=== PATIENT | male | born 2000 ===

== ENCOUNTER 2024-05-23 00:23 | Emergency (ER) | payer OTHER ==
[~2024-05-23] VITALS: Ht 170.2 cm; Wt 77.1 kg
[~2024-05-23 00:23] MED LIST: Crutch1 EACH MISC; IBUP600 PO; Motrin100 MG/5 M PO; Norco 5-325 Ta1 EACH PO
[2024-05-23 01:01] LABS: BASOPHILS ABSOLUTE AUTO 0.04 K/mm3 (0.00-0.23); BASOPHILS PERCENT AUTO 0 % (0-2); EOSINOPHILS ABSOLUTE AUTO 0.15 K/mm3 (0.00-0.68); EOSINOPHILS PERCENT AUTO 1 % (0-6); Hematocrit 46.3 % (37.0-53.0); Hemoglobin 16.5 g/dL (13.5-17.5); IMMATURE GRAN ABSOLUTE AUTO 0.07 K/mm3 (0.00-0.10); IMMATURE GRAN PERCENT AUTO 1 % (0-1); LYMPHOCYTES ABSOLUTE AUTO 3.33 K/mm3 (0.84-5.20); LYMPHOCYTES PERCENT AUTO 28 % (21-46); MONOCYTES ABSOLUTE AUTO 0.93 K/mm3 (0.16-1.47); MONOCYTES PERCENT AUTO 8 % (4-13); Mean Corpuscular HGB 30.5 pg (26.0-34.0); Mean Corpuscular HGB Conc 35.6 g/dL (31.5-36.5); Mean Corpuscular Volume 86 fL (80-100); Mean Platelet Volume 9.4 fL (9.1-12.4); NEUTROPHILS ABSOLUTE AUTO 7.25 K/mm3 (1.96-9.15); NEUTROPHILS PERCENT AUTO 62 % (41-73); Platelet Count 283 K/mm3 (150-400); RDW Coefficient Variation 12.2 % (11.7-14.2); RDW Standard Deviation 38.2 fL (35.1-46.3); Red Blood Cell Count 5.41 M/mm3 (4.30-5.90); White Blood Cell Count 11.77 K/mm3 (4.00-11.30)
[2024-05-23] MEDS ORDERED: Ondansetron HCl 2 MG / ML 2ML Vial IV ONE (01:05)
[2024-05-23 01:13] LABS: Alanine Aminotransfer (ALT/SGP 46 U/L (12-78); Albumin, Blood 4.1 g/dL (3.4-5.0); Albumin/Globulin Ratio 1.2 (0.8-1.8); Alk Phos 139 U/L (50-136); Anion Gap 13 mmol/L (3-11); Aspartate Aminotrans (AST/SGOT 19 U/L (12-37); Bilirubin, Total 0.5 mg/dL (0.1-1.0); Blood Urea Nitrogen 12 mg/dL (8-24); Bun/Creatinine Ratio 12.1 (12.0-20.0); CO2, Blood 25 mmol/L (21-32); Calcium, Blood 9.9 mg/dL (8.5-10.1); Chloride, Blood 106 mmol/L (98-108); Creatinine, Blood 0.99 mg/dL (0.60-1.20); Globulin, Blood 3.4 g/dL (2.2-4.0); Glomerular Filtration Rate 108 (60-); Glucose, Blood 128 mg/dL (70-99); Potassium, Blood 3.4 mmol/L (3.5-5.5); Sodium, Blood 141 mmol/L (136-145); Total Protein, Blood 7.5 g/dL (6.4-8.2)
[2024-05-23 01:54] LABS: Base Excess Venous 4.6 mmol/L; Bicarbonate Venous 27.6 mmol/L (24.0-30.0); PCO2 Venous 47.6 mmHg (38-42)
[2024-05-23 02:07] LABS: Ethanol (Alcohol), Blood, Med <3 mg/dL
[2024-05-23 04:10] VITALS: BP 126/76
== END 2024-05-23 04:13 | disposition left against medical advice (07) ==
LOC: ER 00:23
PROVIDERS: Emergency Medicine
DX: Z77.128 Contact with and (suspected) exposure to other hazards in the physical environment (principal); F12.90 Cannabis use, unspecified, uncomplicated; F17.200 Nicotine dependence, unspecified, uncomplicated; Z88.0 Allergy status to penicillin
CPT/HCPCS: 71045; 80053; 80320; 82375; 82550; 82803; 83605; 84484; 85025; 93005; 93010; 96374; 99284-25; J2405

== ENCOUNTER 2024-08-06 12:20 | Emergency (ER) | payer OTHER ==
[~2024-08-06] VITALS: Ht 172.7 cm; Wt 77.1 kg
[2024-08-06] MEDS ORDERED: NS 1,000 ML IV ONE (12:23)
[2024-08-06] MEDS ORDERED: Morphine Sulfate 4 MG/1 ML Injection ONE (12:28)
[2024-08-06] MEDS ORDERED: propofoL 20 ML IV ONE (12:31)
[2024-08-06] MEDS ORDERED: Rocuronium Bromide 10 MG/ML 5ML Injection IV ONE (12:31)
[2024-08-06] MEDS ORDERED: Dexamethasone Sod Phos 10 MG/ML 1ML VIAL ONE ×2 (12:31→12:42)
[2024-08-06] MEDS ORDERED: SuccINYLCHOLINE Chloride 100 MG/5 ML 5MLSYR ONE ×2 (12:31)
[2024-08-06] MEDS ORDERED: Ondansetron HCl 2 MG / ML 2ML Vial ONE ×2 (12:31→12:42)
[2024-08-06] MEDS ORDERED: FentaNYL Citrate 50 MCG/ML 5 ML Injection ONE (12:32)
[2024-08-06] MEDS ORDERED: Tetanus,Diphtheria Toxd Ped/Pf 0.5 ML VIAL IM ONE (12:35)
[2024-08-06] MEDS ORDERED: Diphth,Pertuss(Acell),Tet Vac 0.5 ML VIAL IM ONE (12:40)
[2024-08-06] MEDS ORDERED: FentaNYL Citrate 50 MCG/ML 2 ML Injection ONE (12:42)
[2024-08-06] MEDS ORDERED: Midazolam HCl 1MG / ML 2ML Vial ONE ×2 (12:42→13:47)
[2024-08-06 12:51] LABS: BASOPHILS ABSOLUTE AUTO 0.09 K/mm3 (0.00-0.23); BASOPHILS PERCENT AUTO 1 % (0-2); EOSINOPHILS ABSOLUTE AUTO 0.26 K/mm3 (0.00-0.68); EOSINOPHILS PERCENT AUTO 2 % (0-6); Hematocrit 45.5 % (37.0-53.0); Hemoglobin 16.3 g/dL (13.5-17.5); IMMATURE GRAN ABSOLUTE AUTO 0.18 K/mm3 (0.00-0.10); IMMATURE GRAN PERCENT AUTO 1 % (0-1); LYMPHOCYTES ABSOLUTE AUTO 3.91 K/mm3 (0.84-5.20); LYMPHOCYTES PERCENT AUTO 27 % (21-46); MONOCYTES ABSOLUTE AUTO 1.15 K/mm3 (0.16-1.47); MONOCYTES PERCENT AUTO 8 % (4-13); Mean Corpuscular HGB Conc 35.8 g/dL (31.5-36.5); Mean Corpuscular Volume 84 fL (80-100); Mean Platelet Volume 9.1 fL (9.1-12.4); NEUTROPHILS ABSOLUTE AUTO 9.12 K/mm3 (1.96-9.15); NEUTROPHILS PERCENT AUTO 62 % (41-73); Platelet Count 346 K/mm3 (150-400); RDW Coefficient Variation 12.3 % (11.7-14.2); RDW Standard Deviation 36.9 fL (35.1-46.3); Red Blood Cell Count 5.44 M/mm3 (4.30-5.90); White Blood Cell Count 14.71 K/mm3 (4.00-11.30)
[2024-08-06 12:55] LABS: International Normalized Ratio 1.06; Prothrombin Time Results 11.3 Sec (9.7-11.5)
[2024-08-06] MEDS ORDERED: Vancomycin HCl 1000 MG ADDvantage ONE (12:56)
[2024-08-06] MEDS ORDERED: CeFAZolin Sodium 1000 mg Vial ONE (12:58)
[2024-08-06] MEDS ORDERED: MetroNIDAZOLE 500MG/NS 100 ml 100 ML IV ONE (13:00)
--- NOTE | 2024-08-06 13:02 | NUR ---
The patient is in imaging and his mother, Amanda arrivesto the ED. I walk into the consult room and provide some anxiety containment. I then go out to determine nexts steps with the patient. I am told that the patient went to surgery and that I could bring Amanda back to the surgery consult room which I did. I conducted a life review of the patient and provided therapeutic liatening and a calming presence. She tells me that while he is in surgery she would drive home to [place] and retreive her phone. I walk her to the parking [facility] as she assures me several times that she ok to drive. While she is gone RN Sheet Folder Gentry informs me that they are going to send the patient with [facility] to [place] in [place] and that the transport team is already on campus. I called Amanda who has uptained her phone and tell her that [place]. She is grateful to know this before she drove back to the hospital. She voices appreciation for the support and care given. I continue to remain available to the patient and family.
[2024-08-06 13:11] VITALS: BP 142/122
[2024-08-06 13:25] LABS: Alanine Aminotransfer (ALT/SGP 28 U/L (12-78); Albumin/Globulin Ratio 1.4 (0.8-1.8); Alk Phos 113 U/L (50-136); Anion Gap 13 mmol/L (3-11); Aspartate Aminotrans (AST/SGOT 23 U/L (12-37); Blood Urea Nitrogen 12 mg/dL (8-24); Bun/Creatinine Ratio 11.2 (12.0-20.0); CO2, Blood 23 mmol/L (21-32); Chloride, Blood 103 mmol/L (98-108); Creatinine, Blood 1.07 mg/dL (0.60-1.20); Ethanol (Alcohol), Blood, Med <3 mg/dL; Globulin, Blood 2.9 g/dL (2.2-4.0); Glomerular Filtration Rate 98 (60-); Glucose, Blood 178 mg/dL (70-99); Potassium, Blood 3.2 mmol/L (3.5-5.5); Sodium, Blood 136 mmol/L (136-145); Total Protein, Blood 6.9 g/dL (6.4-8.2)
[2024-08-06] MEDS ORDERED: fentaNYL citrate 1,000 MCG in NS 80 ML IV SCH (13:35)
[2024-08-06] MEDS ORDERED: propofoL 100 ML IV SCH (13:35)
--- NOTE | 2024-08-06 14:01 | NUR ---
08/06/24 1401 Mona Marin GIVEN BY ANESTHESIA: 1 G ANCEF @ 1246 1 G ANCEF @ 1252 500 FLAGYL @ 1259 FIELD TOURNIQUET LET DOWN FOR 3 MIN TO LEFT UE, WOUND DRESSED WITH 4X4 AND TEGADERM, TOURNIQUET REPLACED BY SURGEON
== END 2024-08-06 12:37 | disposition short-term general hospital (02) ==
LOC: ER 12:20
PROVIDERS: Student in an Organized Health Care Education/Training Program
DX: M79.602 Pain in left arm (principal); S31.139S Puncture wound of abdominal wall without foreign body, unspecified quadrant without penetration into peritoneal cavity, sequela; S71.032 Puncture wound without foreign body, left hip; S31.03 Puncture wound without foreign body of lower back and pelvis; S51.832S Puncture wound without foreign body of left forearm, sequela; F17.210 Nicotine dependence, cigarettes, uncomplicated; W34.00XA Accidental discharge from unspecified firearms or gun, initial encounter
CPT/HCPCS: 70450; 71045; 71260; 72125; 74177; 80053; 80320; 83690; 85025; 85610; 86850; 86900; 86901; 86923; 88300; 90702; 96374-59; 99285-25; J0330; J0690; J1100; J2250; J2270; J2405; J2704; J3010; J3370; J7030; Q9967

== ENCOUNTER 2024-08-15 22:09 | Emergency (ER) | payer OTHER ==
[~2024-08-15] VITALS: Ht 170.2 cm; Wt 79.4 kg
[2024-08-15 22:21] VITALS: BP 151/90
== END 2024-08-16 00:41 | disposition left against medical advice (07) ==
LOC: ER 22:09
DX: Z53.21 Procedure and treatment not carried out due to patient leaving prior to being seen by health care provider (principal)
CPT/HCPCS: 93005; 93010

== ENCOUNTER 2024-08-20 23:40 | Observation (INO) | payer OTHER ==
[~2024-08-20] VITALS: Ht 172.7 cm; Wt 70.5 kg
[2024-08-21] MEDS ORDERED: Acetaminophen 500 MG Tab PO ONE (00:05)
[2024-08-21] MEDS ORDERED: NS 1,000 ML IV SCH ×2 (00:05→03:20)
[2024-08-21] MEDS ORDERED: FentaNYL Citrate 50 MCG/ML 2 ML Injection IV PRN ×2 (00:05→03:15)
[2024-08-21 00:19] LABS: BASOPHILS ABSOLUTE AUTO 0.08 K/mm3 (0.00-0.23); BASOPHILS PERCENT AUTO 0 % (0-2); EOSINOPHILS ABSOLUTE AUTO 0.16 K/mm3 (0.00-0.68); EOSINOPHILS PERCENT AUTO 1 % (0-6); Hemoglobin 9.5 g/dL (13.5-17.5); IMMATURE GRAN ABSOLUTE AUTO 0.21 K/mm3 (0.00-0.10); IMMATURE GRAN PERCENT AUTO 1 % (0-1); LYMPHOCYTES ABSOLUTE AUTO 2.81 K/mm3 (0.84-5.20); LYMPHOCYTES PERCENT AUTO 15 % (21-46); MONOCYTES ABSOLUTE AUTO 1.34 K/mm3 (0.16-1.47); MONOCYTES PERCENT AUTO 7 % (4-13); Mean Corpuscular HGB 31.5 pg (26.0-34.0); Mean Corpuscular HGB Conc 33.9 g/dL (31.5-36.5); Mean Corpuscular Volume 93 fL (80-100); Mean Platelet Volume 8.6 fL (9.1-12.4); NEUTROPHILS ABSOLUTE AUTO 14.76 K/mm3 (1.96-9.15); NEUTROPHILS PERCENT AUTO 76 % (41-73); Platelet Count 822 K/mm3 (150-400); RDW Coefficient Variation 15.5 % (11.7-14.2); Red Blood Cell Count 3.02 M/mm3 (4.30-5.90); White Blood Cell Count 19.36 K/mm3 (4.00-11.30)
[2024-08-21] MEDS ORDERED: CeFAZolin Sodium 2,000 MG in NS 100 ML IV ONE (00:25)
[2024-08-21 00:39] LABS: Albumin, Blood 3.1 g/dL (3.4-5.0); Albumin/Globulin Ratio 0.8 (0.8-1.8); Bilirubin, Total 0.7 mg/dL (0.1-1.0); Bun/Creatinine Ratio 12.8 (12.0-20.0); Calcium, Blood 8.6 mg/dL (8.5-10.1); Creatinine, Blood 0.86 mg/dL (0.60-1.20); Globulin, Blood 3.7 g/dL (2.2-4.0); Potassium, Blood 3.5 mmol/L (3.5-5.5); Total Protein, Blood 6.8 g/dL (6.4-8.2)
[2024-08-21] MEDS ORDERED: LORazepam 2 MG/ML 1ML Injection IV ONE ×2 (01:55→09:00)
[2024-08-21] MEDS ORDERED: MetroNIDAZOLE 500MG/NS 100 ml 100 ML IV ONE (02:50)
[2024-08-21] MEDS ORDERED: Acetaminophen 325 MG TABLET PO PRN (03:15)
[2024-08-21] MEDS ORDERED: Ondansetron HCl 2 MG / ML 2ML Vial IV PRN (03:15)
[2024-08-21] MEDS ORDERED: Cefepime HCl 1,000 MG in NS 100 ML IV SCH (03:24)
[2024-08-21] MEDS ORDERED: Vancomycin HCL 1,750 MG in NS 500 ML IV ONE (03:40)
--- NOTE | 2024-08-21 04:01 | NUR ---
REVIEWED FOR CURRENT ADMISSION
[2024-08-21 05:25] VITALS: BP 123/80
[2024-08-21] MEDS ORDERED: NS 250 ML IV PRN (05:45)
[2024-08-21 08:51] LABS: BASOPHILS ABSOLUTE AUTO 0.06 K/mm3 (0.00-0.23); BASOPHILS PERCENT AUTO 1 % (0-2); EOSINOPHILS ABSOLUTE AUTO 0.18 K/mm3 (0.00-0.68); EOSINOPHILS PERCENT AUTO 1 % (0-6); Hematocrit 25.2 % (37.0-53.0); Hematocrit 25.9 % (37.0-53.0); Hemoglobin 8.3 g/dL (13.5-17.5); Hemoglobin 8.4 g/dL (13.5-17.5); IMMATURE GRAN ABSOLUTE AUTO 0.14 K/mm3 (0.00-0.10); IMMATURE GRAN PERCENT AUTO 1 % (0-1); LYMPHOCYTES ABSOLUTE AUTO 1.76 K/mm3 (0.84-5.20); LYMPHOCYTES PERCENT AUTO 14 % (21-46); MONOCYTES ABSOLUTE AUTO 0.93 K/mm3 (0.16-1.47); MONOCYTES PERCENT AUTO 7 % (4-13); Mean Corpuscular HGB 30.7 pg (26.0-34.0); Mean Corpuscular HGB Conc 32.9 g/dL (31.5-36.5); Mean Corpuscular Volume 93 fL (80-100); Mean Platelet Volume 8.6 fL (9.1-12.4); NEUTROPHILS ABSOLUTE AUTO 9.65 K/mm3 (1.96-9.15); NEUTROPHILS PERCENT AUTO 76 % (41-73); Platelet Count 636 K/mm3 (150-400); RDW Coefficient Variation 15.7 % (11.7-14.2); RDW Standard Deviation 51.9 fL (35.1-46.3); White Blood Cell Count 12.72 K/mm3 (4.00-11.30)
[2024-08-21] MEDS ORDERED: ClonazePAM 0.5 MG Tab PO PRN (08:55)
[2024-08-21 09:09] LABS: Albumin, Blood 2.5 g/dL (3.4-5.0); Albumin/Globulin Ratio 0.8 (0.8-1.8); Bilirubin, Total 0.5 mg/dL (0.1-1.0); Bun/Creatinine Ratio 10.5 (12.0-20.0); Calcium, Blood 8.2 mg/dL (8.5-10.1); Creatinine, Blood 0.67 mg/dL (0.60-1.20); Globulin, Blood 3.1 g/dL (2.2-4.0); Potassium, Blood 3.9 mmol/L (3.5-5.5); Total Protein, Blood 5.6 g/dL (6.4-8.2)
--- NOTE | 2024-08-21 10:38 | NUR ---
AM NOTE: PATIENT A/OX4, ANXIOUS AND LABILE MOOD. AT AROUND 0840 VEGETABLE TIER CAME IN AND DRAW AM SCHEDULED LAB. PATIENT MOM AND GIRLFRIEND AT BEDSIDE. PER VEGETABLE TIER PATIENT EXPRESSESS TO MOM STATED, "I WANNA ." PATIENT MOM LEFT THE ROOM. AT AROUND 0850 DR. WALTERS ROUND ON PATIENT. AT AROUND 0900 PATIENT HAD OUTBURST, ARGUING c HIS GIRLFRIEND, YELLING OUT AND REQUESTING TO LEAVE THE ROOM. COLT CHEN WAS CALLED; A COUPLE OF SECURITY RESPONDED TO ROOM, DR. WALTERS, DR. REDMAN AND THIS RN IN ROOM. PATIENT ANXIOUS, AGITATED STATED "DON'T LET HER TAKE THE BAGBACK THAT'S MINE." PATIENT GIRLFRIEND LEFT THE ROOM. PATIENT MEDICATED FOR ANXIETY. PATIENT ASSISTED UP TO RECLINER CHAIR. AT AROUND 0940'S DR. DARBY, DR. WALTERS AND DR. REDMAN ROUND ON PATIENT. PATIENT REQUESTING TO GO OUT TO SMOKE CIGARETTE. DR. WALTERS SPOKE TO PATIENT c SMOKING POLICY AND OFFERED NICOTINE PATCH. PATIENT DECLINED AND WANTING TO LEAVE AMA. PATIENT EDUCATED c RISK AND BENIFITS LEAVING AMA c HIS CURRENT CONDITION. PATIENT ALSO INFORMED HE GOT ACCEPTED BY DR. CHEN ( AT [facility]) WERE WAITING FOR BED AVAILABILITY FOR TRANSFER. PATIENT STATED "I CANNOT WAIT HERE ANYMORE,I DON'T WANNA RIDE IN AMBULANCE BUT I'M WILLING TO GO TO [facility] ER AND ADMITTED MYSELF. I NEED TO CALL SOMEONE TO TRANSPORT ME TO [facility]. PATIENT MOM CALLED, THIS RN ANSWER THE TELEPHONE IN PATIENT ROOM. PATIENT MOM SPOKE TO DR. WALTERS. PATIENT MOM VEBALIZED UNDERSTANDING, AGREED FOR PATIENT TO LEAVE AMA AND TAKE DIRECTLY TO -[facility]. PATIENT MOM ARRIVED AT 1118 IN ROOM. PIV DC'D. ALL PERSONAL BELONGINGS WERE SENT c THE PATIENT. PATIENT LEFT AMA AT 1120 TRANSPORTED VIA WHEELCHAIR BY MOM (LE[facility]). DR. WALTERS NOTIFIED AT 1122.
== END 2024-08-21 11:22 | disposition left against medical advice (07) ==
LOC: ER 23:40 → MEDS 23:41 → ERHOLD 23:41 → MEDS 08-21 05:11
PROVIDERS: Emergency Medicine; Internal Medicine; ADMIT Internal Medicine
DX: A41.9 Sepsis, unspecified organism (principal); K65.1 Peritoneal abscess; L02.211 Cutaneous abscess of abdominal wall; F17.210 Nicotine dependence, cigarettes, uncomplicated; Z88.0 Allergy status to penicillin
CPT/HCPCS: 36415; 70450; 71260; 74177; 80053; 83605; 83690; 85014; 85018; 85025; 87040; 93005; 93010; 96361; 96365-59; 96366; 96375; 96376; 99284-25; G0378; J0690; J0692; J2060; J3010; J3370; J7030; J7040; Q9967

== ENCOUNTER 2024-09-05 11:22 | Day surgery (SDC) | payer OTHER ==
[~2024-09-05 11:22] MED LIST changes: +Ertapenem Sodium 1,000 MG in NS 50 ML IV SCH
[2024-09-05 11:30] VITALS: BP 139/74
[2024-09-05] MEDS ORDERED: ERTAPENEM1 G6 IV (12:56)
[2024-09-05 13:34] LABS: BASOPHILS ABSOLUTE AUTO 0.07 K/mm3 (0.00-0.23); BASOPHILS PERCENT AUTO 1 % (0-2); EOSINOPHILS ABSOLUTE AUTO 0.22 K/mm3 (0.00-0.68); EOSINOPHILS PERCENT AUTO 2 % (0-6); Hematocrit 30.9 % (37.0-53.0); Hemoglobin 10.2 g/dL (13.5-17.5); IMMATURE GRAN ABSOLUTE AUTO 0.09 K/mm3 (0.00-0.10); IMMATURE GRAN PERCENT AUTO 1 % (0-1); LYMPHOCYTES ABSOLUTE AUTO 2.79 K/mm3 (0.84-5.20); LYMPHOCYTES PERCENT AUTO 26 % (21-46); MONOCYTES ABSOLUTE AUTO 0.72 K/mm3 (0.16-1.47); MONOCYTES PERCENT AUTO 7 % (4-13); Mean Corpuscular HGB 29.7 pg (26.0-34.0); Mean Corpuscular Volume 90 fL (80-100); NEUTROPHILS ABSOLUTE AUTO 6.66 K/mm3 (1.96-9.15); NEUTROPHILS PERCENT AUTO 63 % (41-73); Platelet Count 528 K/mm3 (150-400); RDW Coefficient Variation 14.4 % (11.7-14.2); RDW Standard Deviation 47.1 fL (35.1-46.3); Red Blood Cell Count 3.43 M/mm3 (4.30-5.90); White Blood Cell Count 10.55 K/mm3 (4.00-11.30)
[2024-09-05 13:47] LABS: C-REACTIVE PROTEIN, EXT RANGE 0.524 mg/dL (0.000-0.300)
[2024-09-05 13:50] LABS: Albumin, Blood 3.2 g/dL (3.4-5.0); Albumin/Globulin Ratio 0.8 (0.8-1.8); Bilirubin, Total 0.2 mg/dL (0.1-1.0); Bun/Creatinine Ratio 9.7 (12.0-20.0); Calcium, Blood 9.4 mg/dL (8.5-10.1); Creatinine, Blood 0.82 mg/dL (0.60-1.20); Globulin, Blood 3.9 g/dL (2.2-4.0); Potassium, Blood 3.4 mmol/L (3.5-5.5); Total Protein, Blood 7.1 g/dL (6.4-8.2)
--- NOTE | 2024-09-05 15:46 | NUR ---
Lab results from today's draw faxed to Dr. Falcon's office at [phone].
== END 2024-09-05 12:05 | disposition home or self-care (01) ==
LOC: ATC 11:22
PROVIDERS: Internal Medicine Infectious Disease
DX: T81.43XA Infection following a procedure, organ and space surgical site, initial encounter (principal); K65.1 Peritoneal abscess; Z88.0 Allergy status to penicillin
CPT/HCPCS: 80053; 85025; 86140; J1335

== ENCOUNTER 2024-09-06 03:48 | Day surgery (SDC) | payer OTHER ==
[2024-09-06 14:48] VITALS: BP 136/89
== END 2024-09-06 15:15 | disposition home or self-care (01) ==
LOC: ATC 03:48
DX: T81.43XA Infection following a procedure, organ and space surgical site, initial encounter (principal); K65.1 Peritoneal abscess; Z88.0 Allergy status to penicillin

== ENCOUNTER 2024-09-07 00:30 | Day surgery (SDC) | payer OTHER ==
[2024-09-07 14:52] VITALS: BP 133/87
== END 2024-09-07 15:18 | disposition home or self-care (01) ==
LOC: ATC 00:30
DX: T81.43XA Infection following a procedure, organ and space surgical site, initial encounter (principal); K65.1 Peritoneal abscess; F17.210 Nicotine dependence, cigarettes, uncomplicated; Z79.2 Long term (current) use of antibiotics; Z88.0 Allergy status to penicillin

== ENCOUNTER 2024-09-08 01:19 | Day surgery (SDC) | payer OTHER ==
[~2024-09-08 01:19] MED LIST changes: +ERTAPENEM1 G6 IV
[2024-09-08 14:55] VITALS: BP 134/79
[2024-09-08 16:09] LABS: Bun/Creatinine Ratio 12.5 (12.0-20.0); Calcium, Blood 9.1 mg/dL (8.5-10.1); Creatinine, Blood 0.8 mg/dL (0.60-1.20); Potassium, Blood 3.5 mmol/L (3.5-5.5)
== END 2024-09-08 15:10 | disposition home or self-care (01) ==
LOC: ATC 01:19
PROVIDERS: Internal Medicine Infectious Disease
DX: T81.43XA Infection following a procedure, organ and space surgical site, initial encounter (principal); K65.1 Peritoneal abscess; F17.210 Nicotine dependence, cigarettes, uncomplicated; Z88.0 Allergy status to penicillin; Z79.899 Other long term (current) drug therapy
CPT/HCPCS: 80048; 96365; J1335

== ENCOUNTER 2024-09-10 01:54 | Day surgery (SDC) | payer OTHER ==
[2024-09-10 14:45] VITALS: BP 123/74
== END 2024-09-10 15:10 | disposition home or self-care (01) ==
LOC: ATC 01:54
DX: T81.43XA Infection following a procedure, organ and space surgical site, initial encounter (principal); K65.1 Peritoneal abscess; B96.20 Unspecified Escherichia coli [E. coli] as the cause of diseases classified elsewhere; R00.0 Tachycardia, unspecified; G89.11 Acute pain due to trauma; F17.210 Nicotine dependence, cigarettes, uncomplicated; Z16.11 Resistance to penicillins; Z16.19 Resistance to other specified beta lactam antibiotics; Z16.29 Resistance to other single specified antibiotic; Z91.51 Personal history of suicidal behavior; Z79.2 Long term (current) use of antibiotics; Z90.49 Acquired absence of other specified parts of digestive tract
CPT/HCPCS: 96365; J1335

== ENCOUNTER 2024-09-20 04:29 | Day surgery (SDC) | payer OTHER ==
[2024-09-20 14:20] VITALS: BP 146/76
== END 2024-09-20 14:58 | disposition home or self-care (01) ==
LOC: ATC 04:29
DX: T81.43XA Infection following a procedure, organ and space surgical site, initial encounter (principal); K65.1 Peritoneal abscess; F43.10 Post-traumatic stress disorder, unspecified; G47.00 Insomnia, unspecified; F17.210 Nicotine dependence, cigarettes, uncomplicated; Z79.899 Other long term (current) drug therapy; Z88.0 Allergy status to penicillin
CPT/HCPCS: 96365; J1335

== ENCOUNTER 2024-10-20 23:41 | Emergency (ER) | payer OTHER ==
[~2024-10-20] VITALS: Ht 172.7 cm; Wt 72.6 kg
[~2024-10-20 23:41] MED LIST changes: -Ertapenem Sodium 1,000 MG in NS 50 ML IV SCH
[2024-10-21 00:12] LABS: BASOPHILS ABSOLUTE AUTO 0.04 K/mm3 (0.00-0.23); BASOPHILS PERCENT AUTO 1 % (0-2); EOSINOPHILS ABSOLUTE AUTO 0.15 K/mm3 (0.00-0.68); EOSINOPHILS PERCENT AUTO 2 % (0-6); Hematocrit 35.2 % (37.0-53.0); Hemoglobin 11.5 g/dL (13.5-17.5); IMMATURE GRAN ABSOLUTE AUTO 0.02 K/mm3 (0.00-0.10); IMMATURE GRAN PERCENT AUTO 0 % (0-1); LYMPHOCYTES ABSOLUTE AUTO 1.48 K/mm3 (0.84-5.20); LYMPHOCYTES PERCENT AUTO 18 % (21-46); MONOCYTES ABSOLUTE AUTO 0.61 K/mm3 (0.16-1.47); MONOCYTES PERCENT AUTO 7 % (4-13); Mean Corpuscular HGB Conc 32.7 g/dL (31.5-36.5); Mean Corpuscular Volume 84 fL (80-100); NEUTROPHILS ABSOLUTE AUTO 5.89 K/mm3 (1.96-9.15); NEUTROPHILS PERCENT AUTO 72 % (41-73); NRBC ABSOLUTE 0.00 K/mm3 (0.00-0.02); NRBC Auto 0.0 /100 WBC (0.0-0.2); Platelet Count 246 K/mm3 (150-400); RDW Coefficient Variation 13.3 % (11.7-14.2); RDW Standard Deviation 40.8 fL (35.1-46.3)
[2024-10-21 00:31] LABS: Alanine Aminotransfer (ALT/SGP 22.0 U/L (12-78); Albumin, Blood 3.3 g/dL (3.4-5.0); Albumin/Globulin Ratio 1.1 (0.8-1.8); Anion Gap 8.0 mmol/L (3-11); Aspartate Aminotrans (AST/SGOT 18.0 U/L (12-37); Bilirubin, Total 0.3 mg/dL (0.1-1.0); Blood Urea Nitrogen 9.0 mg/dL (8-24); CO2, Blood 24.0 mmol/L (21-32); Calcium, Blood 8.0 mg/dL (8.5-10.1); Chloride, Blood 110.0 mmol/L (98-108); Creatinine, Blood 0.91 mg/dL (0.60-1.20); Globulin, Blood 3.1 g/dL (2.2-4.0); Glucose, Blood 89.0 mg/dL (70-99); Potassium, Blood 3.1 mmol/L (3.5-5.5); Sodium, Blood 139.0 mmol/L (136-145); Total Protein, Blood 6.4 g/dL (6.4-8.2)
[2024-10-21] MEDS ORDERED: NS 1,000 ML IV SCH (00:35)
[2024-10-21] MEDS ORDERED: ONDA4ODT MM (02:37)
[2024-10-21 03:07] VITALS: BP 132/87
== END 2024-10-21 03:09 | disposition home or self-care (01) ==
LOC: ER 23:41
PROVIDERS: Emergency Medicine
DX: K68.11 Postprocedural retroperitoneal abscess (principal); R11.2 Nausea with vomiting, unspecified; Z88.0 Allergy status to penicillin; F17.210 Nicotine dependence, cigarettes, uncomplicated
CPT/HCPCS: 74177; 80053; 85025; 96360-59; 99284-25; J7030; Q9967

== ENCOUNTER 2024-10-21 03:56 | Emergency (ER) | payer OTHER ==
[~2024-10-21] VITALS: Ht 167.6 cm; Wt 68.0 kg
[~2024-10-21 03:56] MED LIST changes: +ONDA4ODT MM
== END 2024-10-21 04:13 | disposition home or self-care (01) ==
LOC: ER 03:56
DX: Z76.89 Persons encountering health services in other specified circumstances (principal); Z59.00 Homelessness unspecified; F17.210 Nicotine dependence, cigarettes, uncomplicated; Z88.0 Allergy status to penicillin
CPT/HCPCS: 99281

== ENCOUNTER 2024-10-30 22:59 | Observation (INO) | payer OTHER ==
[~2024-10-30] VITALS: Ht 172.7 cm; Wt 65.4 kg
[2024-10-30 23:45] LABS: BASOPHILS ABSOLUTE AUTO 0.05 K/mm3 (0.00-0.23); BASOPHILS PERCENT AUTO 1 % (0-2); EOSINOPHILS ABSOLUTE AUTO 0.28 K/mm3 (0.00-0.68); EOSINOPHILS PERCENT AUTO 3 % (0-6); Hematocrit 41.4 % (37.0-53.0); Hemoglobin 14.1 g/dL (13.5-17.5); IMMATURE GRAN ABSOLUTE AUTO 0.02 K/mm3 (0.00-0.10); IMMATURE GRAN PERCENT AUTO 0 % (0-1); LYMPHOCYTES ABSOLUTE AUTO 2.43 K/mm3 (0.84-5.20); LYMPHOCYTES PERCENT AUTO 23 % (21-46); MONOCYTES ABSOLUTE AUTO 0.66 K/mm3 (0.16-1.47); MONOCYTES PERCENT AUTO 6 % (4-13); Mean Corpuscular HGB Conc 34.1 g/dL (31.5-36.5); Mean Corpuscular Volume 82 fL (80-100); NEUTROPHILS ABSOLUTE AUTO 7.27 K/mm3 (1.96-9.15); NEUTROPHILS PERCENT AUTO 68 % (41-73); NRBC ABSOLUTE 0.00 K/mm3 (0.00-0.02); NRBC Auto 0.0 /100 WBC (0.0-0.2); Platelet Count 372 K/mm3 (150-400); RDW Coefficient Variation 13.4 % (11.7-14.2); RDW Standard Deviation 40.2 fL (35.1-46.3)
[2024-10-31 00:05] LABS: Ethanol (Alcohol), Blood, Med <3 mg/dL; Salicylate 5.0 mg/dL (2.8-20.0)
[2024-10-31 00:08] LABS: Acetaminophen, Random <2.0 ug/mL (10.0-30.0); Alanine Aminotransfer (ALT/SGP 29 U/L (12-78); Albumin, Blood 4.0 g/dL (3.4-5.0); Albumin/Globulin Ratio 1.0 (0.8-1.8); Anion Gap 8 mmol/L (3-11); Aspartate Aminotrans (AST/SGOT 30 U/L (12-37); Bilirubin, Total 0.5 mg/dL (0.1-1.0); Blood Urea Nitrogen 12 mg/dL (8-24); CO2, Blood 24 mmol/L (21-32); Calcium, Blood 9.6 mg/dL (8.5-10.1); Chloride, Blood 109 mmol/L (98-108); Creatinine, Blood 0.93 mg/dL (0.60-1.20); Globulin, Blood 4.0 g/dL (2.2-4.0); Glucose, Blood 86 mg/dL (70-99); Potassium, Blood 3.7 mmol/L (3.5-5.5); Sodium, Blood 137 mmol/L (136-145); Total Protein, Blood 8.0 g/dL (6.4-8.2)
[2024-10-31] MEDS ORDERED: Ondansetron HCl 2 MG / ML 2ML Vial IV PRN (04:20)
[2024-10-31 05:04] VITALS: BP 115/71
[2024-10-31 05:50] LABS: BASOPHILS ABSOLUTE AUTO 0.06 K/mm3 (0.00-0.23); BASOPHILS PERCENT AUTO 1 % (0-2); EOSINOPHILS ABSOLUTE AUTO 0.28 K/mm3 (0.00-0.68); EOSINOPHILS PERCENT AUTO 4 % (0-6); Hematocrit 37.6 % (37.0-53.0); Hemoglobin 12.6 g/dL (13.5-17.5); IMMATURE GRAN ABSOLUTE AUTO 0.02 K/mm3 (0.00-0.10); IMMATURE GRAN PERCENT AUTO 0 % (0-1); LYMPHOCYTES ABSOLUTE AUTO 2.14 K/mm3 (0.84-5.20); LYMPHOCYTES PERCENT AUTO 28 % (21-46); MONOCYTES ABSOLUTE AUTO 0.55 K/mm3 (0.16-1.47); MONOCYTES PERCENT AUTO 7 % (4-13); Mean Corpuscular HGB Conc 33.5 g/dL (31.5-36.5); Mean Corpuscular Volume 82 fL (80-100); NEUTROPHILS ABSOLUTE AUTO 4.63 K/mm3 (1.96-9.15); NEUTROPHILS PERCENT AUTO 60 % (41-73); NRBC ABSOLUTE 0.00 K/mm3 (0.00-0.02); NRBC Auto 0.0 /100 WBC (0.0-0.2); Platelet Count 325 K/mm3 (150-400); RDW Coefficient Variation 13.6 % (11.7-14.2); RDW Standard Deviation 40.6 fL (35.1-46.3)
--- NOTE | 2024-10-31 05:59 | NUR ---
ADMIT NOTE REPORT RECEIVED BY THIS RN FROM INTERVENTIONAL RADIOLOGY TECH, LAURIE WARD, @ APPROX 0356 PT ARRIVED TO PCU 08 @ APPROX 0430 PT SELF TRANSFERRED TO PCU BED, PT MUMBLING NOT ANSWERING QUESTIONS/ BECOMING AGGITATED DURING THIS RN S ASSESSMENT, PT STATED JUST LEAVE ME ALONE . VSS, LUNGS SOUND CLEAR T/O, NO SIGNS OF DISTRESS AT THIS TIME. BOWEL TONES PRESENT IN ALL 4Q. PT IN PAPER CLOTHES WITH 1:1 SITTER AT BEDSIDE OLD DRAIN FROM SURGERY IN JULY OF THIS YEAR HAS SLIGHT REDNESS TO SITE/ OLD DRESSING REMOVED WITH SMALL AMOUNT OF GREEN DISCHARGE, BLISTERS TO BILATERAL HEELS ARE INTACT, SCAB TO LEFT FOOT, SEE PHOTOS IN CHART, MD TO BEDSIDE @ APPROX 0510, PT BECAME AGITATED WITH DOCTORS ASSESSMENT/ NOT ANSWERING QUESTIONS.
[2024-10-31 06:26] LABS: Alanine Aminotransfer (ALT/SGP 24.0 U/L (12-78); Albumin, Blood 3.7 g/dL (3.4-5.0); Albumin/Globulin Ratio 1.2 (0.8-1.8); Anion Gap 8.0 mmol/L (3-11); Aspartate Aminotrans (AST/SGOT 22.0 U/L (12-37); Bilirubin, Total 0.5 mg/dL (0.1-1.0); Blood Urea Nitrogen 10.0 mg/dL (8-24); CO2, Blood 25.0 mmol/L (21-32); Calcium, Blood 8.9 mg/dL (8.5-10.1); Chloride, Blood 108.0 mmol/L (98-108); Creatinine, Blood 0.87 mg/dL (0.60-1.20); Globulin, Blood 3.2 g/dL (2.2-4.0); Glucose, Blood 87.0 mg/dL (70-99); Potassium, Blood 3.5 mmol/L (3.5-5.5); Sodium, Blood 137.0 mmol/L (136-145); Total Protein, Blood 6.9 g/dL (6.4-8.2)
[2024-10-31] MEDS ORDERED: Enoxaparin 40 MG/0.4 ML SYR SC SCH (09:00)
--- NOTE | 2024-10-31 09:12 | NUR ---
ASSUMPTION OF CARE NOTE. PT VERY SOMNOLENT. VERY EMOTIONAL, SOMEWHAT ERRATIC BEHAVIOR CRAIG. ACCOMPANIED DR. WALKER INTO ROOM FOR ROUNDS, PT ABLE TO BE WOKEN AND WAS VERY EMOTIONAL/UPSET/IRRITATED REQUESTING TO EAT, CALL HIS MOM, ASKING IF/WHY HE IS ON A HOLD, ETC. PER DR. WALKER, PT ALLOWED TO HAVE ICE CHIPS BUT IS OTHERWISE TO REMAIN NPO UNTIL SURGICAL CONSULT HAS BEEN COMPLETED. PT UPSET ABOUT THIS. COMPLAINS OF HIP PAIN. DR. WALKER REPORTS HE WILL LOOK THROUGH CHART AND INPUT ORDERS APPROPRIATE FOR PAIN MANAGEMENT. WHEN COMING BACK TO ROOM TO PROVIDE ICE CHIPS, ACCOMPANIED DR. ANGLIN AND WE WERE UNABLE TO WAKE PATIENT. UNCLEAR TO WHETHER PT WAS TRULY SLEEPING OR WILLFULLY IGNORING STAFF. SOMEWHAT NONCOMPLIANT WITH CARE. REPORTED HE WOULD BE WILLING TO TAKE PAIN MEDICATIONS IF THEY WERE MADE AVAILABLE. PCU NO TELE STATUS. BED LOCKED IN LOWEST POSITION. 1:[address] HIGH SI PRECAUTIONS, ALL ITEMS IN ROOM REMOVED. CONTINUING TO MONITOR.
[2024-10-31 09:55] VITALS: BP 132/88
[2024-10-31] MEDS ORDERED: Haloperidol Lactate Inj. 5 MG/ML Injection ONE (12:15)
[2024-10-31] MEDS ORDERED: Haloperidol Lactate Inj. 5 MG/ML Injection IM ONE (12:15)
[2024-10-31] MEDS ORDERED: Haloperidol Lactate Inj. 5 MG/ML Injection IM PRN (12:20)
--- NOTE | 2024-10-31 12:43 | NUR ---
PT AWOKE @ ~1200 EXTREMELY AGITATED, YELLING, THROWING OBJECTS IN ROOM. DEMANDING TO BE LET GO, DEMANDING TO SPEAK WITH A DOCTOR, VERBALLY HARASSING STAFF. SECURITY WAS CALLED AND WAS ABLE TO BEGIN TO VERBALLY TALK DOWN PATIENT FROM EXTREMELY AGITATED STATE. DENISE Marie, ARRIVED AND ORDERED IM HALDOL FOR MANAGEMENT. PT BEGAN TO THREATEN STAFF WHEN EDUCATED ON PURPOSE FOR IM INJECTION. AT THIS TIME, [employer] WAS CALLED TO ASSIST AND DEESCALATING PATIENT BEHAVIORS. BY THE TIME [employer] ARRIVED, PT HAD BEGUN TO CALM DOWN AND WAS AGREEABLE WITH TAKING PO ATIVAN. TOOK PO ATIVAN W/O DIFFICULTY. WAS SERVED LUNCH SHORTLY THEREAFTER AND IS EATING AT THIS TIME WITH 1:1 FOR CONSTANT MONITORING. CONTINUING TO MONITOR.
--- NOTE | 2024-10-31 16:54 | NUR ---
SHIFT SUMMARY. SHIFT HAS BEEN SOMEWHAT EVENTFUL. SEE PREVIOUS NOTES FOR DETAILS. SINCE TIME PREVIOUS NOTE WAS WRITTEN, PT HAS BEEN RESTING COMFORTABLY IN BED. ALLOWED STAFF TO CHANGE DRESSING, BAG, AND STOP LEVER ON DRAIN. OTHERWISE HAS BEEN RESTING IN ROOM. STAFF HAS BEEN MINIMIZING INTRUSIONS IN ROOM TO ALLOW FOR PATIENT TO REST, AND TO MITIGATE POSSIBILITY OF FURTHER INSTANCES OF AGITATION. ALLOWED STAFF TO PERFORM ROUTINES OF CARE INCLUDING VITALS AND SHIFT ASSESSMENT THIS MORNING OTHERWISE HAS BEEN LEFT ALONE D/T RISK OF AGITATION. 1:[address] BED LOCKED IN LOWEST POSITION. CONTINUING TO MONITOR.
[2024-10-31 17:22] VITALS: BP 139/89
[2024-10-31 20:08] LABS: Source, Urine Clean Catch
[2024-10-31 20:12] LABS: Bilirubin, Urine Neg (Neg); Color, Urine Yellow (P-Yellow); Glucose Qualitative, Urine Neg (Neg); Ketones, Urine Neg (Neg); Leukocyte Esterase, Urine Neg (Neg); Protein, Urine 1+ (Neg); Specific Gravity, Urine 1.020 (1.003-1.022); Urobilinogen, Urine NORM (Normal)
[2024-10-31 20:27] LABS: U Amphetamine Screen DETECTED; U Barbituate Screen Not Detected; U Benzodiazapine Screen DETECTED; U Buprenorphine Screen Not Detected; U Cannabinoids Screen DETECTED; U Cocaine Screen Not Detected; U Methadone Screen Not Detected; U Methamphetamine Screen DETECTED; U Opiates Screen Not Detected; U Oxycodone Screen Not Detected; U Phencyclidine Screen Not Detected
[2024-10-31 20:37] VITALS: BP 140/98
--- NOTE | 2024-10-31 20:39 | NUR ---
EASILY AGITATED. QUICK TO DEMAND, BUT QUICK TO CHANGE MIND WELL. VSS. NO VOICED SUICIDAL IDEATION BUT APPEARS VERY HIGH POTENTIAL. 1:1 AT BEDSIDE. CONTINUOUS OBSERVATION. PRECAUTIONS MAINTAINED. SHORT CALL LIGHT IN REACH. RAILS UP X 2.
--- NOTE | 2024-11-01 04:23 | NUR ---
BURLESQUE DANCER SUMMARY VSS, WHEN ALLOWING STAFF TO TAKE THEM. INTERMITTENT REFUSAL OF ROUTINE CARE REFUSED DUE TO ANGER, IRRITATION OR POSSIBLE DEFIANCE TO STAFF. REMAINS ON HOLD FOR HIGH SUICIDAL IDEATIONS. REMAINS QUIET, SOME APPARENT IGNORING STAFF QUESTIONS. SOME REFUSALS INCLUDING VITAL SIGNS. 1:1 REMAINS AT BEDISDE FOR SAFETY. CONTINUOUS OBSERVATION MAINTAINED EVEN WHEN PT IN BATHROOM. (UP TO VOID X 2 OF THIS WRITING). NO NOTED ACUTE PHYSICAL DISTRESS. SENT URINE TO LAB FOR UA. SHORT CALL LIGHT IN REACH, RAILS UP X 2 AND BED IN LOW POSITION FOR SAFETY. HAS BEEN RESTING QUIETLY MOST OF SHIFT. WILL CONTINUE TO MONITOR/ASSESS.
--- NOTE | 2024-11-01 09:00 | NUR ---
SI ESCALATION/SECURITY CALLED: Pt became escalated during conversation with sitter regarding 2MD hold. Jumped out of bed, threatening to break windows and equipment. Sitter instructed to step out of room and security called for safety. PMD and show design supervisor called to come to bedside. PMD discussed hold with patient, pt remained agitated. Psych physican called by PMD. Agreed to take PO zyprexa and asked for telephone to call Mom. Phone provided while security remained at room entry, pt spoke to Mom. Pts mom called nursing station after phone call with patient, update and verbal support provided, plan discussed. Care team including CN and nursing show design supervisor discussed staff safety and that 1:1 sitter would be allowed to sit outside the room even though there would not be direct line of site to upper body. PO zyprexa administered. Pt chose to elope at approx 0850 and ran quickly down halls towards exit, remained highly agitated. Local police called by show design supervisor. CN placed call to notify pt's mom for safety purposes and update.
== END 2024-11-01 08:50 | disposition home or self-care (01) ==
LOC: ER 22:59 → PCU 23:00 → UNDODEPER 11-01 04:46 → PCU 11-01 08:50
PROVIDERS: Student in an Organized Health Care Education/Training Program; ADMIT Internal Medicine
DX: R45.851 Suicidal ideations (principal); F17.210 Nicotine dependence, cigarettes, uncomplicated; Z87.828 Personal history of other (healed) physical injury and trauma; Z79.899 Other long term (current) drug therapy; Z88.0 Allergy status to penicillin; R45.1 Restlessness and agitation
CPT/HCPCS: 36415; 74177; 80053; 80320; 83605; 85025; 99285-25; A9270; G0378; G0480; J1630; Q9967

== ENCOUNTER 2024-11-01 09:51 | Emergency (ER) | payer OTHER ==
[~2024-11-01] VITALS: Ht 172.7 cm; Wt 68.0 kg
[2024-11-01 10:10] VITALS: BP 123/70
== END 2024-11-01 10:41 | disposition home or self-care (01) ==
LOC: ER 09:51
DX: F32.2 Major depressive disorder, single episode, severe without psychotic features (principal); F17.210 Nicotine dependence, cigarettes, uncomplicated; Z88.0 Allergy status to penicillin; Z79.899 Other long term (current) drug therapy
CPT/HCPCS: 99282

== ENCOUNTER 2025-02-05 12:32 | Emergency (ER) | payer OTHER ==
[~2025-02-05] VITALS: Ht 170.2 cm; Wt 68.0 kg
[2025-02-05] MEDS ORDERED: HYDROcodone 5-APAP 325 TAB PO ONE (12:45)
[2025-02-05 13:12] LABS: BASOPHILS ABSOLUTE AUTO 0.06 K/mm3 (0.00-0.23); BASOPHILS PERCENT AUTO 1 % (0-2); EOSINOPHILS ABSOLUTE AUTO 0.11 K/mm3 (0.00-0.68); EOSINOPHILS PERCENT AUTO 1 % (0-6); Hematocrit 40.3 % (37.0-53.0); Hemoglobin 13.7 g/dL (13.5-17.5); IMMATURE GRAN ABSOLUTE AUTO 0.03 K/mm3 (0.00-0.10); IMMATURE GRAN PERCENT AUTO 0 % (0-1); LYMPHOCYTES ABSOLUTE AUTO 1.76 K/mm3 (0.84-5.20); LYMPHOCYTES PERCENT AUTO 18 % (21-46); MONOCYTES ABSOLUTE AUTO 0.83 K/mm3 (0.16-1.47); MONOCYTES PERCENT AUTO 8 % (4-13); Mean Corpuscular HGB Conc 34.0 g/dL (31.5-36.5); Mean Corpuscular Volume 86 fL (80-100); NEUTROPHILS ABSOLUTE AUTO 7.27 K/mm3 (1.96-9.15); NEUTROPHILS PERCENT AUTO 72 % (41-73); NRBC ABSOLUTE 0.00 K/mm3 (0.00-0.02); NRBC Auto 0.0 /100 WBC (0.0-0.2); Platelet Count 257 K/mm3 (150-400); RDW Coefficient Variation 13.5 % (11.7-14.2); RDW Standard Deviation 42.7 fL (35.1-46.3)
[2025-02-05 13:40] LABS: Alanine Aminotransfer (ALT/SGP 30.0 U/L (12-78); Albumin, Blood 3.7 g/dL (3.4-5.0); Albumin/Globulin Ratio 1.1 (0.8-1.8); Anion Gap 7.0 mmol/L (3-11); Aspartate Aminotrans (AST/SGOT 20.0 U/L (12-37); Bilirubin, Total 0.9 mg/dL (0.1-1.0); Blood Urea Nitrogen 13.0 mg/dL (8-24); CO2, Blood 27.0 mmol/L (21-32); Calcium, Blood 9.4 mg/dL (8.5-10.1); Chloride, Blood 107.0 mmol/L (98-108); Creatinine, Blood 0.84 mg/dL (0.60-1.20); Globulin, Blood 3.3 g/dL (2.2-4.0); Glucose, Blood 84.0 mg/dL (70-99); Potassium, Blood 3.7 mmol/L (3.5-5.5); Sodium, Blood 137.0 mmol/L (136-145); Total Protein, Blood 7.0 g/dL (6.4-8.2)
[2025-02-05 14:15] VITALS: BP 144/88
== END 2025-02-05 15:21 | disposition home or self-care (01) ==
LOC: ER 12:32
PROVIDERS: Student in an Organized Health Care Education/Training Program
DX: S30.0XXA Contusion of lower back and pelvis, initial encounter (principal); F17.210 Nicotine dependence, cigarettes, uncomplicated; X58.XXXA Exposure to other specified factors, initial encounter; Z88.0 Allergy status to penicillin
CPT/HCPCS: 71046; 72193; 76870; 80053; 82550; 85025; 99284-25; A9270; Q9967

== ENCOUNTER 2025-03-10 13:27 | Emergency (ER) | payer OTHER ==
[~2025-03-10] VITALS: Ht 172.7 cm; Wt 66.2 kg
[2025-03-10] MEDS ORDERED: Ketorolac Tromethamine 15mg Vial IV ONE (13:35)
[2025-03-10 13:38] VITALS: BP 129/91
[2025-03-10 13:57] LABS: BASOPHILS ABSOLUTE AUTO 0.07 K/mm3 (0.00-0.23); BASOPHILS PERCENT AUTO 1 % (0-2); EOSINOPHILS ABSOLUTE AUTO 0.19 K/mm3 (0.00-0.68); EOSINOPHILS PERCENT AUTO 1 % (0-6); Hematocrit 44.8 % (37.0-53.0); Hemoglobin 15.4 g/dL (13.5-17.5); IMMATURE GRAN ABSOLUTE AUTO 0.07 K/mm3 (0.00-0.10); IMMATURE GRAN PERCENT AUTO 1 % (0-1); LYMPHOCYTES ABSOLUTE AUTO 2.20 K/mm3 (0.84-5.20); LYMPHOCYTES PERCENT AUTO 15 % (21-46); MONOCYTES ABSOLUTE AUTO 0.87 K/mm3 (0.16-1.47); MONOCYTES PERCENT AUTO 6 % (4-13); Mean Corpuscular HGB Conc 34.4 g/dL (31.5-36.5); Mean Corpuscular Volume 87 fL (80-100); NEUTROPHILS ABSOLUTE AUTO 11.56 K/mm3 (1.96-9.15); NEUTROPHILS PERCENT AUTO 77 % (41-73); NRBC ABSOLUTE 0.00 K/mm3 (0.00-0.02); NRBC Auto 0.0 /100 WBC (0.0-0.2); Platelet Count 312 K/mm3 (150-400); RDW Coefficient Variation 12.7 % (11.7-14.2); RDW Standard Deviation 40.2 fL (35.1-46.3)
[2025-03-10 14:21] LABS: Source, Urine Clean Catch
[2025-03-10 14:26] LABS: Bilirubin, Urine Neg (Neg); Color, Urine Yellow (P-Yellow); Glucose Qualitative, Urine Neg (Neg); Ketones, Urine Neg (Neg); Leukocyte Esterase, Urine Neg (Neg); Protein, Urine Neg (Neg); Specific Gravity, Urine 1.015 (1.003-1.022); Urobilinogen, Urine NORM (Normal)
[2025-03-10 14:40] LABS: Alanine Aminotransfer (ALT/SGP 59.0 U/L (12-78); Albumin, Blood 4.1 g/dL (3.4-5.0); Albumin/Globulin Ratio 1.3 (0.8-1.8); Anion Gap 8.0 mmol/L (3-11); Aspartate Aminotrans (AST/SGOT 106.0 U/L (12-37); Bilirubin, Total 0.6 mg/dL (0.1-1.0); Blood Urea Nitrogen 12.0 mg/dL (8-24); CO2, Blood 28.0 mmol/L (21-32); Calcium, Blood 9.7 mg/dL (8.5-10.1); Chloride, Blood 107.0 mmol/L (98-108); Creatinine, Blood 0.96 mg/dL (0.60-1.20); Globulin, Blood 3.2 g/dL (2.2-4.0); Glucose, Blood 84.0 mg/dL (70-99); Potassium, Blood 4.7 mmol/L (3.5-5.5); Sodium, Blood 138.0 mmol/L (136-145); Total Protein, Blood 7.3 g/dL (6.4-8.2)
== END 2025-03-10 15:31 | disposition left against medical advice (07) ==
LOC: ER 13:27
PROVIDERS: Physician Assistant
DX: R10.12 Left upper quadrant pain (principal); Z53.29 Procedure and treatment not carried out because of patient's decision for other reasons
CPT/HCPCS: 80053; 81003; 85025; 99283-25

== ENCOUNTER 2025-04-16 17:24 | Observation (INO) | payer OTHER ==
[~2025-04-16] VITALS: Ht 172.7 cm; Wt 68.0 kg
[2025-04-16 18:02] LABS: BASOPHILS ABSOLUTE AUTO 0.07 K/mm3 (0.00-0.23); BASOPHILS PERCENT AUTO 1 % (0-2); EOSINOPHILS ABSOLUTE AUTO 0.08 K/mm3 (0.00-0.68); EOSINOPHILS PERCENT AUTO 1 % (0-6); Hematocrit 45.5 % (37.0-53.0); Hemoglobin 15.6 g/dL (13.5-17.5); IMMATURE GRAN ABSOLUTE AUTO 0.05 K/mm3 (0.00-0.10); IMMATURE GRAN PERCENT AUTO 0 % (0-1); LYMPHOCYTES ABSOLUTE AUTO 2.28 K/mm3 (0.84-5.20); LYMPHOCYTES PERCENT AUTO 18 % (21-46); MONOCYTES ABSOLUTE AUTO 0.79 K/mm3 (0.16-1.47); MONOCYTES PERCENT AUTO 6 % (4-13); Mean Corpuscular HGB Conc 34.3 g/dL (31.5-36.5); Mean Corpuscular Volume 86 fL (80-100); NEUTROPHILS ABSOLUTE AUTO 9.66 K/mm3 (1.96-9.15); NEUTROPHILS PERCENT AUTO 75 % (41-73); NRBC ABSOLUTE 0.00 K/mm3 (0.00-0.02); NRBC Auto 0.0 /100 WBC (0.0-0.2); Platelet Count 296 K/mm3 (150-400); RDW Coefficient Variation 13.2 % (11.7-14.2); RDW Standard Deviation 41.5 fL (35.1-46.3)
[2025-04-16 18:22] LABS: Ethanol (Alcohol), Blood, Med <3 mg/dL; Salicylate <1.7 mg/dL (2.8-20.0)
[2025-04-16 18:32] LABS: Alanine Aminotransfer (ALT/SGP 23 U/L (12-78); Albumin, Blood 4.3 g/dL (3.4-5.0); Albumin/Globulin Ratio 1.2 (0.8-1.8); Anion Gap 9 mmol/L (3-11); Aspartate Aminotrans (AST/SGOT 23 U/L (12-37); Bilirubin, Total 1.4 mg/dL (0.1-1.0); Blood Urea Nitrogen 16 mg/dL (8-24); CO2, Blood 28 mmol/L (21-32); Calcium, Blood 9.7 mg/dL (8.5-10.1); Chloride, Blood 103 mmol/L (98-108); Creatinine, Blood 1.12 mg/dL (0.60-1.20); Globulin, Blood 3.6 g/dL (2.2-4.0); Glucose, Blood 130 mg/dL (70-99); Potassium, Blood 3.9 mmol/L (3.5-5.5); Sodium, Blood 136 mmol/L (136-145); Total Protein, Blood 7.9 g/dL (6.4-8.2)
[2025-04-16 18:33] LABS: Acetaminophen, Random <2.0 ug/mL (10.0-30.0)
[2025-04-16 21:50] LABS: Source, Urine Clean Catch
[2025-04-16 21:57] LABS: Bilirubin, Urine Neg (Neg); Glucose Qualitative, Urine Neg (Neg); Ketones, Urine 2+ (Neg); Leukocyte Esterase, Urine Neg (Neg); Protein, Urine 2+ (Neg); Specific Gravity, Urine 1.030 (1.003-1.022); Urobilinogen, Urine NORM (Normal)
[2025-04-16 22:17] LABS: Color, Urine Yellow (P-Yellow)
[2025-04-16 22:18] LABS: Red Blood Cells, Urine 0-2 /hpf (0-2); White Blood Cells, Urine 0-2 /hpf (0-5)
[2025-04-16 22:26] LABS: U Amphetamine Screen DETECTED; U Barbiturate Screen Not Detected; U Benzodiazapine Screen Not Detected; U Buprenorphine Screen Not Detected; U Cannabinoids Screen DETECTED; U Cocaine Screen Not Detected; U Methadone Screen Not Detected; U Methamphetamine Screen DETECTED; U Opiates Screen Not Detected; U Oxycodone Screen Not Detected; U Phencyclidine Screen Not Detected
[2025-04-17 09:30] VITALS: BP 132/83
== END 2025-04-17 09:35 | disposition home or self-care (01) ==
LOC: ER 17:24 → EOR 17:25
PROVIDERS: Student in an Organized Health Care Education/Training Program; ADMIT Student in an Organized Health Care Education/Training Program
DX: F32.9 Major depressive disorder, single episode, unspecified (principal); R45.851 Suicidal ideations; F43.10 Post-traumatic stress disorder, unspecified; F41.9 Anxiety disorder, unspecified; F17.200 Nicotine dependence, unspecified, uncomplicated; Z88.0 Allergy status to penicillin; Z59.00 Homelessness unspecified
CPT/HCPCS: 80053; 80320; 81001; 85025; 99285; G0378; G0480